=== PATIENT | male | born 1970 | race Caucasian/White ===

== ENCOUNTER 2022-04-13 18:09 | Inpatient (IN) | payer OTHER ==
[2022-04-13 18:32] VITALS: BMI 34.2
[2022-04-13] MEDS ORDERED: SODIUM CHLORIDE 0.9% 500 ML INFUS.BAG IV ONE ×2 (19:22)
[2022-04-13 19:47] LABS: VENOUS BASE EXCESS -1.4 mmol/L (-2-2); VENOUS O2 SATURATION 61.1 % (70-80); VENOUS PCO2 39.2 mmHg (38-52); VENOUS PH 7.391 (7.310-7.410)
[2022-04-13 20:01] LABS: BASO % 0.3 % (0-2.0); HEMATOCRIT 49.3 % (35.4-49); HEMOGLOBIN 16.8 GM/dL (11.7-16.9); LYMPH % 7.9 % (8-40); MCH 29.3 pg (25.7-33.7); MCHC 34.1 g/dl (32.0-35.9); MEAN CELL VOLUME 85.9 fl (80-96); MEAN PLT VOLUME 8.2 fl (7.5-11.1); MONO % 9.6 % (3.8-10.2); NEUT % 82.2 % (42.8-82.8); PLATELET COUNT 158 10^3/uL (134-434); RBC 5.73 M/mm3 (4.00-5.60); RDW 13.2 % (11.9-15.9); WHITE BLOOD COUNT 18.1 K/mm3 (4.0-10.0)
[2022-04-13 20:09] LABS: CALCIUM 9.4 mg/dL (8.5-10.1)
[2022-04-13 20:10] LABS: ALBUMIN 3.7 g/dl (3.4-5.0); BLOOD UREA NITROGEN 12.9 mg/dL (7-18)
[2022-04-13 20:14] LABS: BILIRUBIN,TOTAL 4.2 mg/dL (0.2-1)
[2022-04-13 20:42] LABS: URINE APPEARANCE CLEAR; URINE COLOR YELLOW
[2022-04-13 20:43] LABS: PH,URINE 5.5 (5.0-8.0); URINE BILIRUBIN NEGATIVE (NEGATIVE); URINE GLUCOSE (UA) >=1000 (NEGATIVE); URINE KETONE 80 (NEGATIVE); URINE PROTEIN 30 (NEGATIVE)
[2022-04-13 20:44] LABS: URINE NITRITE NEGATIVE (NEGATIVE)
[2022-04-13 20:46] LABS: EPI CELLS 10 /uL (0-25.1); URINE LEUK ESTERASE NEGATIVE (NEGATIVE); URINE RBC 8 /uL (0-23.9); URINE WBC 88 /uL (0-25.8)
[2022-04-13 20:47] LABS: HYALINE CASTS 5 /uL (0-3.1); URINE BACTERIA 3588 /uL (0-1359)
[2022-04-13] MEDS ORDERED: CEFTRIAXONE 1,000 MG in DEXTROSE 5%-WATER - 50 ML IVPB ONE (21:39)
[2022-04-13] MEDS ORDERED: CEFTRIAXONE 1 GM/50 ML BAG ONE (22:13)
[2022-04-13 22:58] VITALS: TEMP 98.1
[2022-04-14] MEDS ORDERED: INSULIN (NOVOLOG) ASPART 100 UNITS/ML 10ML VIAL SQ ONE (00:48)
[2022-04-14 07:00] LABS: BASO % 0.3 % (0-2.0); EOS % 0.1 % (0-4.5); HEMATOCRIT 46.4 % (35.4-49); HEMOGLOBIN 15.7 GM/dL (11.7-16.9); LYMPH % 9.4 % (8-40); MCH 29.2 pg (25.7-33.7); MCHC 33.9 g/dl (32.0-35.9); MEAN CELL VOLUME 86.1 fl (80-96); MEAN PLT VOLUME 8.5 fl (7.5-11.1); MONO % 9.1 % (3.8-10.2); NEUT % 81.1 % (42.8-82.8); PLATELET COUNT 154 10^3/uL (134-434); RBC 5.39 M/mm3 (4.00-5.60); RDW 13.1 % (11.9-15.9); WHITE BLOOD COUNT 15.3 K/mm3 (4.0-10.0)
[2022-04-14] MEDS ORDERED: metFORMIN HCL 500 MG TABLET (FP) PO SCH (07:00)
[2022-04-14 07:19] LABS: CALCIUM 8.9 mg/dL (8.5-10.1)
[2022-04-14 07:20] LABS: ALBUMIN 3.4 g/dl (3.4-5.0); BLOOD UREA NITROGEN 12.5 mg/dL (7-18); MAGNESIUM 2.2 mg/dL (1.8-2.4)
[2022-04-14 07:23] LABS: CREATININE 0.7 mg/dL (0.55-1.3)
[2022-04-14 07:25] LABS: BILIRUBIN,TOTAL 2.7 mg/dL (0.2-1); TOT PROT 6.4 g/dl (6.4-8.2)
[2022-04-14] MEDS ORDERED: metFORMIN HCL 500 MG TABLET (FP) ONE (07:39)
[2022-04-14] MEDS: INSULIN SLIDING SCALE (NOVOLOG) 1 VIAL SQ SCH ×2 (07:46→10:01)
[2022-04-14] MEDS ORDERED: CEFTRIAXONE 1 GM/50 ML BAG ONE (09:44)
[2022-04-14] MEDS ORDERED: ENOXAPARIN NA (PORCINE) 40 MG/0.4 ML DISP.SYRIN SQ ONE (09:44)
[2022-04-14] MEDS ORDERED: SODIUM CHLORIDE 1,000 ML IV SCH (09:45)
[2022-04-14] MEDS ORDERED: CEFTRIAXONE 1 GM in DEXTROSE 5%-WATER - 50 ML IVPB SCH (10:00)
[2022-04-14] MEDS ORDERED: ENOXAPARIN NA (PORCINE) 40 MG/0.4 ML DISP.SYRIN SQ SCH (10:00)
[2022-04-14] MEDS ORDERED: INSULIN (LEVEMIR) 100 UNITS/ML UNITS SQ ONE (12:38)
[2022-04-14] MEDS ORDERED: LISINOPRIL 5 MG TABLET PO SCH (15:00)
[2022-04-14 18:57] VITALS: BP 127/71; PULSE 94
== END 2022-04-14 19:27 | disposition home or self-care (01) | DRG 638 ==
LOC: JER 18:09 → JERBED 21:56
PROVIDERS: ADMIT Internal Medicine; ATTEND Nurse Practitioner Family
DX: E11.65 Type 2 diabetes mellitus with hyperglycemia (principal); N39.0 Urinary tract infection, site not specified; E66.9 Obesity, unspecified; Z68.34 Body mass index [BMI] 34.0-34.9, adult; D72.829 Elevated white blood cell count, unspecified
CPT/HCPCS: 0241U-QW; 36415; 71045-TC-FY; 76705-TC; 80053; 80061; 81003; 82010; 82248; 82803; 82962; 83036; 83735; 84100; 84443; 85025; 87086; 87186; 93005; 93010; 99285-25

== ENCOUNTER 2025-02-13 23:05 | Emergency (ER) | payer OTHER ==
[2025-02-13 23:28] VITALS: BP 140/90; PULSE 100; RESP 18; TEMP 98.3; BMI 34.8
[2025-02-14] MEDS ORDERED: METHOCARBAMOL 500 MG TABLET ONE (00:43)
[2025-02-14] MEDS ORDERED: ACETAMINOPHEN 325 MG TABLET (FP) ONE (00:44)
[2025-02-14] MEDS: LIDOCAINE 4% PATCH TP ONE (01:33)
[2025-02-14] MEDS: METHOCARBAMOL 750 MG TABLET PO ONE (01:34)
[2025-02-14] MEDS: ACETAMINOPHEN 500 MG TABLET (FP) PO ONE (01:34)
== END 2025-02-14 01:55 | disposition home or self-care (01) ==
LOC: JER 23:05
DX: M54.2 Cervicalgia (principal); M25.512 Pain in left shoulder; M25.552 Pain in left hip; M54.50 Low back pain, unspecified; M79.605 Pain in left leg; M79.602 Pain in left arm; V43.52XA Car driver injured in collision with other type car in traffic accident, initial encounter; Y92.410 Unspecified street and highway as the place of occurrence of the external cause
CPT/HCPCS: 70450-TC; 72125-TC; 73502-TC-LT-FY; 99284-25